=== PATIENT | female | born 1990 | race Caucasian/White ===

== ENCOUNTER 2018-02-22 12:42 | Emergency (ER) | payer BC, OTHER ==
[2018-02-22] MEDS ORDERED: NS 1,000 ML IV ONE (13:05)
[2018-02-22] MEDS ORDERED: LORazepam 2 MG/ML INJ IVP ONE (13:05)
--- NOTE | 2018-02-22 13:10 | EDPHY ---
H & P Time Seen by Provider: 02/22/18 13:00 HPI/ROS: CHIEF COMPLAINT: Fatigue, lightheadedness, sore neck HISTORY OF PRESENT ILLNESS: Patient is a 19-year-old female presents emergency department multiple complaints. Patient states she has been ill for the past 2 weeks. She has had extreme fatigue. She has had decreased appetite. No measured fever. No nausea vomiting. No diarrhea. No dysuria frequency. No sick contacts. No cough or shortness of breath. Patient denies any sore throat. Patient was seen in urgent care on Thursday. There she had negative flu test, negative strep test, negative mono test. She was noted to have anterior lymphadenopathy and she was treated with steroids. As stated above the patient was not having any sore throat per her report. Patient has had ongoing fatigue and today the back of her neck became sore. She feels extremely anxious. No rash. No recent travel. The patient is not taking any medications at this time. REVIEW OF SYSTEMS: 10 systems were reveiwed and are negative with the exception of the elements mentioned in the history of present illness. Past Medical/Surgical History: Includes bipolar disorder, shingles Social history: Patient denies smoking, drugs or alcohol. She works [employer]. Smoking Status: Never smoked Physical Exam: 37.0, 134/84, 87, 18, 98% on room air GENERAL: Tearful and anxious appearing, alert. HEENT: Eyes normal to inspection, normal pharynx, no signs of dehydration. Uvula is midline. No visible mass. No photophobia NECK: Normal. Mild bilateral anterior lymphadenopathy. Supple. No rash. No signs of meningismus. RESPIRATORY: Clear to auscultation bilaterally, no rales, rhonchi or wheezing. CVS: Regular rate and rhythm, no rubs, murmurs, or gallops. ABDOMEN: Soft, nontender, nondistended, no organomegaly. Benign BACK: Normal to inspection, no CVA tenderness. SKIN: Normal color, no rash, warm, dry. No pallor. EXTREMITIES: No pedal edema, no calf tenderness, no Homans sign or cords, no joint swelling. NEURO/PSYCH: Alert and oriented, normal mood and affect, normal motor sensory exam. No obvious cranial nerve deficit. Constitutional: Initial Vital Signs Temperature (C) 37.0 C 02/22/18 12:45 Heart Rate 87 02/22/18 12:45 Respiratory Rate 18 02/22/18 12:45 Blood Pressure 134/84 H 02/22/18 12:45 O2 Sat (%) 98 02/22/18 12:45 O2 Delivery Mode Room Air Allergies/Adverse Reactions: sulfamethoxazole [From Bactrim] Allergy (Verified 02/22/18 12:45) trimethoprim [From Bactrim] Allergy (Verified 02/22/18 12:45) Home Medications: Medication Instructions Recorded Cephalexin [Keflex (*)] 500 mg PO QID #40 cap 07/02/13 Lamictal 07/02/13 Wellbutrin 150mg XL 07/02/13 Medical Decision Making - Diagnostics Imaging Results: Imaging Impressions Chest X-Ray 02/22/18 13:05 Impression: Clear lungs. No acute process. ED Course/Re-evaluation: In the emergency department I discussed possible etiologies with the patient. I answered all her questions. Because the patient is having ongoing symptoms laboratory studies, EKG and chest x-ray were ordered. Patient was given normal saline 1 L IV for hydration. She is given Ativan 0.5 mg IV for anxiety symptoms CBC and chemistry were unremarkable. was negative. Patient's UA was positive for bacteria but had no white cells. Negative leuk esterase. Negative nitrite. Urine culture was sent. EKG shows normal sinus rhythm, normal rate, normal axis, normal intervals. There are no ST or T-wave abnormalities. EKG is normal as interpreted by me. Chest x-ray: No acute disease noted. Please refer the dictated report I rechecked the patient. She states she was doing much better than on arrival. She still felt fatigued. I discussed the results. She was given warnings prior to leaving. She was given follow-up with primary care physician. She will return with worsening symptoms. Differential Diagnosis: My differential includes but is not limited to electrolyte abnormality, sugar abnormality, bacteremia, sepsis, meningitis, encephalitis, dysrhythmia, mononucleosis, strep pharyngitis, pneumonia, bronchitis, urinary tract infection , anxiety - Data Points Laboratory Results: Laboratory Results 02/22/18 13:15 02/22/18 13:15 02/22/18 02/22/18 02/22/18 13:15 13:15 13:15 WBC RBC Hgb Hct MCV MCH MCHC RDW Plt Count MPV Neut % (Auto) Lymph % (Auto) [place] % (Auto) Eos % (Auto) Baso % (Auto) Nucleat RBC Rel Count Absolute Neuts (auto) Absolute Lymphs (auto) Absolute Monos (auto) Absolute Eos (auto) Absolute Basos (auto) Absolute Nucleated RBC Immature Gran % Immature Gran # Sodium 140 mEq/L mEq/L (135-145) Potassium 4.0 mEq/L mEq/L (3.3-5.0) Chloride 102 mEq/L mEq/L (97-110) Carbon Dioxide 24 mEq/l mEq/l (22-31) Anion Gap 14 mEq/L mEq/L (6-14) BUN 11 mg/dL mg/dL (7-23) Creatinine 0.7 mg/dL mg/dL (0.6-1.0) Estimated GFR > 60 Glucose 104 mg/dL H mg/dL (70-100) Calcium 9.9 mg/dL mg/dL (8.5-10.4) Total Bilirubin 0.4 mg/dL mg/dL (0.1-1.4) Conjugated Bilirubin 0.2 mg/dL mg/dL (0.0-0.5) Unconjugated Bilirubin 0.2 mg/dL mg/dL (0.0-1.1) AST 17 IU/L IU/L (14-46) ALT 12 IU/L IU/L (9-52) Alkaline Phosphatase 57 IU/L IU/L (38-126) Total Protein 8.3 g/dL H g/dL (6.3-8.2) Albumin 5.0 g/dL g/dL (3.5-5.0) Lipase 120 IU/L IU/L (23-300) Beta HCG, Qual NEGATIVE Urine Color COLORLESS Urine Appearance CLEAR Urine pH 7.0 (5.0-7.5) Ur Specific [place] 1.002 (1.002-1.030) Urine Protein NEGATIVE (NEGATIVE) Urine Ketones NEGATIVE (NEGATIVE) Urine Blood NEGATIVE (NEGATIVE) Urine Nitrate NEGATIVE (NEGATIVE) Urine Bilirubin NEGATIVE (NEGATIVE) Urine Urobilinogen NEGATIVE EU EU (0.2-1.0) Ur Leukocyte Esterase NEGATIVE (NEGATIVE) Urine RBC NONE SEEN /hpf /hpf (0-3) Urine WBC 0-1 /hpf /hpf (0-3) Ur Epithelial Cells TRACE /lpf /lpf (NONE-1+) Urine Bacteria TRACE /hpf H /hpf (NONE SEEN) Urine Mucus TRACE /lpf /lpf (NONE-1+) Urine Glucose NEGATIVE (NEGATIVE) 02/22/18 13:15 WBC 5.97 10^3/uL 10^3/uL (3.80-9.50) RBC 5.04 10^6/uL 10^6/uL (4.18-5.33) Hgb 15.6 g/dL g/dL (12.6-16.3) Hct 45.5 % % (38.0-47.0) MCV 90.3 fL fL (81.5-99.8) MCH 31.0 pg pg (27.9-34.1) MCHC 34.3 g/dL g/dL (32.4-36.7) RDW 11.7 % % (11.5-15.2) Plt Count 384 10^3/uL 10^3/uL (150-400) MPV 9.0 fL fL (8.7-11.7) Neut % (Auto) 71.7 % % (39.3-74.2) Lymph % (Auto) 23.3 % % (15.0-45.0) [place] % (Auto) 4.0 % L % (4.5-13.0) Eos % (Auto) 0.2 % L % (0.6-7.6) Baso % (Auto) 0.5 % % (0.3-1.7) Nucleat RBC Rel Count 0.0 % % (0.0-0.2) Absolute Neuts (auto) 4.28 10^3/uL 10^3/uL (1.70-6.50) Absolute Lymphs (auto) 1.39 10^3/uL 10^3/uL (1.00-3.00) Absolute Monos (auto) 0.24 10^3/uL L 10^3/uL (0.30-0.80) Absolute Eos (auto) 0.01 10^3/uL L 10^3/uL (0.03-0.40) Absolute Basos (auto) 0.03 10^3/uL 10^3/uL (0.02-0.10) Absolute Nucleated RBC 0.00 10^3/uL 10^3/uL (0-0.01) Immature Gran % 0.3 % % (0.0-1.1) Immature Gran # 0.02 10^3/uL 10^3/uL (0.00-0.10) Sodium Potassium Chloride Carbon Dioxide Anion Gap BUN Creatinine Estimated GFR Glucose Calcium Total Bilirubin Conjugated Bilirubin Unconjugated Bilirubin AST ALT Alkaline Phosphatase Total Protein Albumin Lipase Beta HCG, Qual Urine Color Urine Appearance Urine pH Ur Specific [place] Urine Protein Urine Ketones Urine Blood Urine Nitrate Urine Bilirubin Urine Urobilinogen Ur Leukocyte Esterase Urine RBC Urine WBC Ur Epithelial Cells Urine Bacteria Urine Mucus Urine Glucose Medications Given: Discontinued Medications Sodium Chloride (Ns) 1,000 mls @ 0 mls/hr IV EDNOW ONE; Wide Open PRN Reason: Protocol Stop: 02/22/18 13:06 Last Admin: 02/22/18 13:31 Dose: 1,000 mls Lorazepam (Ativan Injection) 0.5 mg IVP EDNOW ONE Stop: 02/22/18 13:06 Last Admin: 02/22/18 13:31 Dose: 0.5 mg Departure - Departure Disposition: Home, Routine, Self-Care Clinical Impression: Anxiety, Viral syndrome Fatigue Qualifiers: Fatigue type: unspecified Qualified Code(s): R53.83 - Other fatigue Condition: Good Instructions: Anxiety (ED), Viral Syndrome (ED) Additional Instructions: Return with increasing symptoms, persistent fever, vomiting, shortness of breath or any other concerns. Urine culture is pending. This takes 48 hrs. If it is positive they will contact you. Referrals: Patricia Arndt MD [Medical Doctor] - 5-7 days, call for appt.
[2018-02-22 13:39] LABS: PLATELET COUNT 384 10^3/uL (150-400)
[2018-02-22 15:08] VITALS: BP 121/74
--- NOTE | 2018-02-22 21:57 | CPEKG ---
Test Reason : OPEN Blood Pressure : / mmHG Vent. Rate : 055 BPM Atrial Rate : 056 BPM P-R Int : 136 ms QRS Dur : 099 ms QT Int : 459 ms P-R-T Axes : 010 032 027 degrees QTc Int : 439 ms Sinus rhythm Confirmed by Ashley Núñez ([id number] on 02/22/2018 9:56:59 PM Referred By: Confirmed By:Ashley Núñez
== END 2018-02-22 15:12 | disposition home or self-care (01) ==
DX: B34.9 Viral infection, unspecified (principal); E86.9 Volume depletion, unspecified; F41.9 Anxiety disorder, unspecified; F31.9 Bipolar disorder, unspecified
CPT/HCPCS: 96374; J2060